=== PATIENT | female | born 1995 ===

== ENCOUNTER 2025-01-04 13:46 | Emergency (ER) | payer OTHER ==
[~2025-01-04] VITALS: Ht 167.6 cm; Wt 68.0 kg
[2025-01-04] MEDS ORDERED: Triamcinolone Inj Susp 40 MG / ML 1ML Vial IM ONE (16:45)
[2025-01-04] MEDS ORDERED: PRED20 PO (17:17)
[2025-01-04] MEDS ORDERED: TRIA15CR3 TOP (17:17)
== END 2025-01-04 17:17 | disposition home or self-care (01) ==
LOC: ER 13:46
DX: L23.9 Allergic contact dermatitis, unspecified cause (principal)
CPT/HCPCS: 96372; 99282-25; A9270; J3301